=== PATIENT | male | born 1940 | race Caucasian/White ===

== ENCOUNTER → 2017-05-13 | Outpatient (CLI) | payer OTHER | LOC: BMCIMAGING 15:02 | PROVIDERS: ATTEND Internal Medicine | DX: S69.92XA Unspecified injury of left wrist, hand and finger(s), initial encounter (principal) ==

== ENCOUNTER 2018-08-11 00:34 | Emergency (ER) | payer OTHER ==
[2018-08-11 00:40] VITALS: BP 156/85
--- NOTE | 2018-08-11 00:42 | EDPHY ---
H & P Stated Complaint: Pt presents for concern of dental abcess on R upper molar Time Seen by Provider: 08/11/18 00:41 HPI/ROS: HPI CHIEF COMPLAINT: Dental pain. HISTORY OF PRESENT ILLNESS: Very pleasant 77-year-old male, otherwise healthy presents emergency room by private vehicle with his daughters daughters in [employer]. Presents emergency room right upper dental pain. This been bothering him for 2-3 days. He previously had a failed root canal to this back in February of 2017. He was placed on antibiotics amoxicillin and did very well. Patient states are feeling fell out recently. Patient requesting be placed back on amoxicillin. Past Medical History: BPH, hypertension Past Surgical History: Denies significant surgical history Social History: Denies drugs, alcohol, tobacco. Family History: Noncontributory ROS REVIEW OF SYSTEMS: 10 Systems were reviewed and negative with the exception of the elements mentioned in the history of present illness. Exam Constitutional triage nursing summary reviewed, vital signs reviewed, awake/ alert. Eyes normal conjunctivae and sclera, EOMI, PERRLA. HENT oropharynx: Right upper jaw line posterior molar is eroded to the gumline, significantly decaying tooth, no significant abscess visualized on exam , no Jose's, no ANUG, normal inspection, atraumatic, moist mucus membranes, no epistaxis, neck supple/ no meningismus, no raccoon eyes. Respiratory clear to auscultation bilaterally, normal breath sounds, no respiratory distress, no wheezing. Cardiovascular rate normal, regular rhythm, no murmur, no edema, distal pulses normal. Gastrointestinal soft, non-tender, no rebound, no guarding, normal bowel sounds, no distension, no pulsatile mass. Genitourinary no CVA tenderness. Musculoskeletal no midline vertebral tenderness, full range of motion, no calf swelling, no tenderness of extremities, no meningismus, good pulses, neurovascularly intact. Skin pink, warm, & dry, no rash, skin atraumatic. Neurologic awake, alert and oriented x 3, AAOx3, moves all 4 extremities equally, motor intact, sensory intact, CN II-XII intact, normal cerebellar, normal vision, normal speech. Psychiatric normal mood/affect. Heme/Lymph/Immune no lymphadenopathy. Differential Diagnosis: Includes but is not limited to in a particular order gumline infection, dental infection, apical abscess, pulpitis, nerve root extrusion. Medical Decision Making: Plan for this patient oral amoxicillin 1st dose given in emergency room. Patient requesting pain control. I have ordered him [place] however he has declined this. Re-evaluation: Amoxicillin 1st dose provided in emergency room as well as [place]. Return precautions discussed with him and his daughter at bedside. Follow-up with dentistry. Patient appears well nontoxic no acute distress. Source: Patient - Personal History Current Tetanus/Diphtheria Vaccine: Yes Current Tetanus Diphtheria and Acellular Pertussis (TDAP): Yes Tetanus Vaccine Date: 2010 - Medical/Surgical History Hx Asthma: No Hx Chronic Respiratory Disease: No Hx Diabetes: No Hx Cardiac Disease: No Hx Renal Disease: No Hx Cirrhosis: No Hx Alcoholism: No Hx HIV/AIDS: No Hx Splenectomy or Spleen Trauma: No Other PMH: HTN, BPH, high cholesterol - Social History Smoking Status: Never smoked Constitutional: Initial Vital Signs Temperature (C) 36.5 C 08/11/18 00:37 Heart Rate 65 08/11/18 00:37 Respiratory Rate 16 08/11/18 00:37 Blood Pressure 156/85 H 08/11/18 00:37 O2 Sat (%) 95 08/11/18 00:37 O2 Delivery Mode Room Air Allergies/Adverse Reactions: No Known Allergies Allergy (Unverified 08/11/18 00:34) Home Medications: Medication Instructions Recorded Lisinopril [Zestril 2.5 mg (RX)] 0 mg PO DAILY 11/26/11 Montelukast Sodium [Singulair 10 10 mg PO DAILY@1800 11/26/11 mg] Tamsulosin HCl [Flomax 0.4 MG (RX)] 0.4 mg PO DAILY8 11/26/11 Amoxicillin Trihydrate 500 mg PO TID 7 Days cap 08/11/18 [Amoxicillin] Medical Decision Making - Data Points Medications Given: Discontinued Medications Hydrocodone Bitart/Acetaminophen ([place] 5/325mg Prepack#6) 1 btl TAKEHOME EDNOW ONE Stop: 08/11/18 00:46 Last Admin: 08/11/18 01:07 Dose: 1 btl Hydrocodone Bitart/Acetaminophen ([place] 5/325) 1 tab PO EDNOW ONE Stop: 08/11/18 00:46 Last Admin: 08/11/18 01:07 Dose: 1 tab Amoxicillin (Amoxil Chewable 250 Mg Prepack#4) 1 btl TAKEHOME EDNOW ONE PRN Reason: Protocol Stop: 08/11/18 00:46 Last Admin: 08/11/18 01:07 Dose: 1 btl Amoxicillin (Amoxicillin) 500 mg PO EDNOW ONE PRN Reason: Protocol Stop: 08/11/18 00:46 Last Admin: 08/11/18 00:51 Dose: 500 mg Departure - Departure Disposition: Home, Routine, Self-Care Clinical Impression: Dental infection Condition: Good Instructions: Dental Abscess (ED), Toothache (ED) Additional Instructions: 1. Antibiotics as prescribed. 2. Pain medicine as prescribed. 3. Follow up with your dentist 4. Return to the ER for worsening symptoms Referrals: Walter Morris MD [Primary Care Provider] - As per Instructions Prescriptions: Amoxicillin Trihydrate [Amoxicillin] 500 mg PO TID 7 Days cap
[2018-08-11] MEDS ORDERED: AMOXICILLIN 250 MG PREPACK#4 BTL TAKEHOME ONE (00:45)
[2018-08-11] MEDS ORDERED: HYDROCOD/APAP 5/325 PREPACK#6 BTL TAKEHOME ONE (00:45)
[2018-08-11] MEDS ORDERED: HYDROCODONE/APAP 5/325 TAB PO ONE (00:45)
== END 2018-08-11 01:27 | disposition home or self-care (01) ==
DX: K08.89 Other specified disorders of teeth and supporting structures (principal); I10 Essential (primary) hypertension; N40.0 Benign prostatic hyperplasia without lower urinary tract symptoms